=== PATIENT | female | born 2000 | race Two or more races ===

== ENCOUNTER 2023-02-11 13:37 | Emergency (ER) | payer OTHER ==
[~2023-02-11] VITALS: Ht 154.9 cm; Wt 45.4 kg
== END 2023-02-11 15:19 | disposition home or self-care (01) ==
LOC: ER 13:37
DX: O26.891 Other specified pregnancy related conditions, first trimester (principal); Z3A.09 9 weeks gestation of pregnancy; G43.909 Migraine, unspecified, not intractable, without status migrainosus

== ENCOUNTER → 2023-04-29 | Outpatient (CLI) | payer OTHER | END | disposition home or self-care (01) | LOC: PRENATAL 16:20 | PROVIDERS: ATTEND Obstetrics & Gynecology Maternal & Fetal Medicine | DX: O35.3XX0 Maternal care for (suspected) damage to fetus from viral disease in mother, not applicable or unspecified (principal); O44.00 Complete placenta previa NOS or without hemorrhage, unspecified trimester; Z3A.19 19 weeks gestation of pregnancy ==

== ENCOUNTER 2023-06-26 17:45 | Emergency (ER) | payer OTHER ==
[~2023-06-26] VITALS: Ht 152.4 cm; Wt 55.8 kg
[2023-06-26 21:57] LABS: HEMATOCRIT 32.2 % (36.0-45.00); HEMOGLOBIN 10.8 g/dL (12.0-15.00); MEAN CELL VOLUME 93.5 fL (80.00-100.00); MEAN CORPUSCULAR HEMOGLOBIN 31.4 pg (27.00-32.0); MEAN CORPUSCULAR HGB CONC 33.6 g/dl (32.0-36.0); PLATELET COUNT 163 K/uL (150-450); RED BLOOD COUNT 3.45 M/uL (4.00-6.00); RED CELL DISTRIBUTION WIDTH 13.4 % (11.5-14.5)
[2023-06-27 00:12] LABS: PH,URINE 7.5 (5.0-8.0); URINE APPEARANCE Clear; URINE BILIRRUBIN Negative (NEGATIVE); URINE BLOOD Negative; URINE COLOR Yellow; URINE GLUCOSE Negative (NEGATIVE); URINE LEUKOCYTE Negative; URINE NITRATE Negative; URINE PROTEIN Negative (NEGATIVE)
[2023-06-27 00:15] LABS: URINE BACTERIA 710.6 uL (0.0-1933); URINE EPITHELIAL CELLS 58.2 uL (0.0-38.8); URINE WBC 21.3 uL (0.0-23.2)
[2023-06-27 00:48] LABS: URINE RBC 1.2 uL (0.0-20.8)
[2023-06-27] MEDS ORDERED: ZYNCOF 20-400120 ML PO (01:51)
[2023-06-27] MEDS ORDERED: ZYRTEC10 M3 PO ×2 (01:51→01:52)
[2023-06-27] MEDS ORDERED: FLONASE ALLERG9.9 ML NASAL (01:51)
== END 2023-06-27 01:56 ==
LOC: ER 17:45
PROVIDERS: Nurse Practitioner Family
DX: Z33.1 Pregnant state, incidental (principal); J00 Acute nasopharyngitis [common cold]; R11.10 Vomiting, unspecified; Z20.822 Contact with and (suspected) exposure to COVID-19

== ENCOUNTER 2023-08-02 22:43 | Emergency (ER) | payer OTHER ==
[~2023-08-02] VITALS: Ht 154.9 cm; Wt 55.8 kg
[~2023-08-02 22:43] MED LIST: FLONASE ALLERG9.9 ML NASAL; ZYNCOF 20-400120 ML PO; ZYRTEC10 M3 PO
== END 2023-08-03 02:07 | disposition home or self-care (01) ==
LOC: ER 22:43
DX: O99.513 Diseases of the respiratory system complicating pregnancy, third trimester (principal); J06.9 Acute upper respiratory infection, unspecified; Z3A.31 31 weeks gestation of pregnancy

== ENCOUNTER 2023-09-22 19:26 | Inpatient (IN) | payer OTHER ==
[~2023-09-22] VITALS: Ht 154.9 cm; Wt 59.9 kg
[2023-09-22] MEDS ORDERED: AMPICILLIN SODIUM 2,000 MG VIAL ONE (19:33)
[2023-09-22] MEDS ORDERED: AMPICILLIN SODIUM 2,000 MG VIAL IV STA (19:37)
[2023-09-22] MEDS ORDERED: RINGERS SOLUTION,LACTATED 1,000 ML IV SCH (19:45)
[2023-09-22] MEDS ORDERED: MISOPROSTOL 25 MCG/4 ML GEL.W.APPL ONE (19:50)
[2023-09-22 20:06] LABS: HEMATOCRIT 36.1 % (36.0-45.00); HEMOGLOBIN 12.3 g/dL (12.0-15.00); MEAN CELL VOLUME 91.8 fL (80.00-100.00); MEAN CORPUSCULAR HEMOGLOBIN 31.2 pg (27.00-32.0); PLATELET COUNT 148 K/uL (150-450); RED BLOOD COUNT 3.93 M/uL (4.00-6.00); RED CELL DISTRIBUTION WIDTH 14.7 % (11.5-14.5)
[2023-09-22 20:07] LABS: URINE APPEARANCE Clear; URINE BILIRRUBIN Negative (NEGATIVE); URINE BLOOD Negative; URINE COLOR Dark Yellow; URINE GLUCOSE Negative (NEGATIVE); URINE LEUKOCYTE Moderate; URINE NITRATE Negative; URINE PROTEIN Trace (NEGATIVE)
[2023-09-22 20:08] LABS: URINE BACTERIA 5394.9 uL (0.0-1933); URINE EPITHELIAL CELLS 91.3 uL (0.0-38.8); URINE RBC 3.8 uL (0.0-20.8); URINE WBC 152.2 uL (0.0-23.2)
[2023-09-22 20:25] LABS: URINE MUCUS MODERATE
[2023-09-22] MEDS ORDERED: PRENATAL + DHA1 EAC1 PO (20:25)
[2023-09-22 20:36] LABS: INR 0.95; PARTIAL THROMBOPLASTIN TIME 27.3 SECONDS (22.0-34.0)
[2023-09-22 20:41] LABS: ALBUMIN 2.8 gm/dL (3.4-5.0); BILIRUBIN TOTAL 0.75 mg/dL (0.3-1.2); CALCIUM 9.3 mg/dL (8.5-10.1); CREATININE SERUM 0.57 mg/dL (0.55-1.02); GFR 131.44; GLOBULINA 3.1 G/DL (2.4-3.5); POTASSIUM 4.3 mEq/L (3.5-5.1); TOTAL PROTEIN 5.9 gm/dL (6.4-8.2)
[2023-09-22] MEDS ORDERED: MISOPROSTOL 25 MCG/4 ML GEL.W.APPL VAG ONE (21:00)
[2023-09-23] MEDS ORDERED: AMPICILLIN SODIUM 1,000 MG VIAL IV SCH
[2023-09-23] MEDS ORDERED: MORPHINE SULFATE 4 MG/ML CARTRIDGE IV ONE (02:45)
[2023-09-23] MEDS ORDERED: CHLORHEXIDINE GLUCONATE 120 ML BOTTLE TOP ONE (07:14)
[2023-09-23] MEDS ORDERED: ERYTHROMYCIN BASE 1 GM TUBE OP ONE (07:14)
[2023-09-23] MEDS ORDERED: OXYTOCIN 20 UNITS/1000ML RL PIGGYBAG IV ONE (07:15)
[2023-09-23] MEDS ORDERED: OXYTOCIN 20 UNITS/500ML RL PIGGYBAG IV ONE (09:56)
[2023-09-23] MEDS ORDERED: OXYTOCIN 500 ML IV SCH (10:15)
[2023-09-23] MEDS ORDERED: IBUprofen 400 MG TABLET PO PRN (12:30)
[2023-09-23] MEDS ORDERED: LIDOCAINE HCL 1% 200MG/20ML VIAL IJ SCH (12:30)
[2023-09-23] MEDS ORDERED: OXYTOCIN 10 UNITS/ML VIAL IM STA (12:30)
[2023-09-23] MEDS ORDERED: CHLORHEXIDINE GLUCONATE 120 ML BOTTLE TP SCH (12:30)
[2023-09-23] MEDS ORDERED: ERYTHROMYCIN BASE 1 GM TUBE OP SCH (12:30)
[2023-09-23 13:25] LABS: ABG PH 7.311 (7.35-7.45); ABG PO2 35.9 mmHg (80-100); ABG pCO2 34.1 mmHg (35-45); BASE EXCESS -8.3 mmol/l; BICARBONATE 16.8 mmol/l (23-25); SaO2 60.7 %; Tco2 19.7 mmol/l
[2023-09-23 13:26] LABS: o2 21 %
[2023-09-23] MEDS ORDERED: DOCUSATE SODIUM 100MG CAP PO SCH (17:00)
[2023-09-23 17:06] LABS: HEMATOCRIT 36.3 % (36.0-45.00); HEMOGLOBIN 12.1 g/dL (12.0-15.00); MEAN CORPUSCULAR HEMOGLOBIN 30.3 pg (27.00-32.0); MEAN CORPUSCULAR HGB CONC 33.3 g/dl (32.0-36.0); PLATELET COUNT 152 K/uL (150-450); RED BLOOD COUNT 3.99 M/uL (4.00-6.00); RED CELL DISTRIBUTION WIDTH 14.6 % (11.5-14.5)
== END 2023-09-25 18:36 | disposition home or self-care (01) | DRG 807 ==
LOC: OB/GYN 19:26 → LDR 19:26 → OB/GYN 09-23 12:51
PROVIDERS: ADMIT Obstetrics & Gynecology; ATTEND Obstetrics & Gynecology
PROC: 3E0P7VZ Introduction of Hormone into Female Reproductive, Via Natural or Artificial Opening (ICD-10-PCS; 2023-09-22)
PROC: 4A1HXCZ Monitoring of Products of Conception, Cardiac Rate, External Approach (ICD-10-PCS; 2023-09-22)
PROC: 10E0XZZ Delivery of Products of Conception, External Approach (ICD-10-PCS; principal; 2023-09-23)
PROC: 0KQM0ZZ Repair Perineum Muscle, Open Approach (ICD-10-PCS; 2023-09-23)
PROC: 3E033VJ Introduction of Other Hormone into Peripheral Vein, Percutaneous Approach (ICD-10-PCS; 2023-09-23)
DX: O70.1 Second degree perineal laceration during delivery (principal); Z37.0 Single live birth; O99.824 Streptococcus B carrier state complicating childbirth; Z3A.40 40 weeks gestation of pregnancy; Z20.822 Contact with and (suspected) exposure to COVID-19